=== PATIENT | male | born 1960 | race Caucasian/White ===

== ENCOUNTER 2017-01-20 18:11 | Inpatient (IN) ==
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
[2017-01-20] MEDS ORDERED: THIAMINE 200mg/2ml INJECTION IVP ONE (19:43)
[2017-01-20] MEDS ORDERED: NS 1,000 ML IV ONE (19:44)
[2017-01-20] MEDS ORDERED: IOHEXOL 300mg/ml 100ml INJECTION ONE (20:06)
[2017-01-20] MEDS ORDERED: NS 100 ML ONE (20:07)
[2017-01-20] MEDS ORDERED: SALINE FLUSH 10ml SYRINGE ONE (20:07)
[2017-01-20] MEDS ORDERED: SALINE FLUSH 10ml SYRINGE IVF PRN ×2 (20:32)
[2017-01-20] MEDS ORDERED: FentaNYL 100 MCG/2 ML INJECTION IVP ONE (22:08)
[2017-01-20] MEDS ORDERED: ONDANSETRON 4 MG/2 ML INJECTION IVP ONE (22:08)
[2017-01-20] MEDS ORDERED: ACETAMINOPHEN 325 MG TABLET PO PRN (23:23)
[2017-01-20] MEDS ORDERED: ONDANSETRON 4 MG/2 ML INJECTION IVP PRN (23:23)
[2017-01-20] MEDS ORDERED: MORPHINE SULFATE 2 MG SYRINGE IVP PRN (23:23)
[2017-01-20 23:50] VITALS: BMI 17.1
[2017-01-21] MEDS: NS 1,000 ML IV SCH ×3 (00:11→20:17)
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
--- NOTE | 2017-01-21 08:15 | CT Scan Report ---
Indication: AMS, lethargy PROCEDURE: CT head/brain wo con: Encounter: Initial Comparison: None Technique: Axial CT images through the head were performed without contrast. Iterative Reconstruction dose reducing technique was utilized. FINDINGS: The ventricles are of normal size, shape, and contour for the patient's age. There are scattered areas of low attenuation in the white matter which most likely represent changes from chronic microvascular ischemia. The brainstem, cerebellum, and cerebral hemispheres otherwise have a normal morphology and CT attenuation. There is no evidence of midline displacement. No hemorrhage, signs of acute territorial stroke, mass effect, mass lesions, or edema is evident. Chronic left maxillary sinusitis with bony wall thickening. Left ostiomeatal unit pattern of obstruction with mucosal thickening in the left frontal and anterior ethmoid air cells. The visualized portions of the skull base, midface, and calvarium demonstrate no abnormality. The paranasal sinuses are well aerated and free of significant disease. The tympanic and mastoid cavities appear normal. IMPRESSION: No acute intracranial abnormality or hemorrhage. There is a preliminary report by [facility]. .
[2017-01-21] MEDS: PANTOPRAZOLE 40 MG INJECTION IVP SCH (08:22)
[2017-01-21] MEDS: NICOTINE 21 MG PATCH TD SCH (08:23)
--- NOTE | 2017-01-21 08:30 | CT Scan Report ---
Indication: ABD PAIN PROCEDURE: CT abdomen pelvis w con: Encounter: Initial Comparison: None Technique: Axial CT images were performed through the abdomen and pelvis after the administration of intravenous contrast. Coronal and sagittal two-dimensional reformats. Automated Exposure Control and Iterative Reconstruction dose reducing techniques were utilized. Contrast: Omnipaque 300 75 mL Findings: The lung bases are clear. The liver is diffusely fatty infiltrated. Gallbladder is contracted. The spleen, pancreas and adrenal glands are within normal limits. Scattered arterial atherosclerotic plaque. The bladder is grossly normal. Small amount of free fluid. Diffusely dilated small bowel loops throughout the abdomen and pelvis measuring up to 5.5 cm in diameter with areas of wall thickening in the left upper quadrant. Fluid-filled colon. There is fecalization terminal ileum but no obvious transition point or decompressed small bowel appreciated. There is an anastomosis in the right upper quadrant small bowel. Bone windows show degenerative changes in the spine. Impression: Diffuse small bowel dilatation could represent an acute distal small bowel obstruction in the terminal ileal region versus chronic small bowel distention from slow motility or ileus. Surgical evaluation is recommended. There is a preliminary report by [facility]. .
[2017-01-21] MEDS: FOLIC ACID 5 MG/ML INJECTION IVP SCH (10:38)
[2017-01-21] MEDS: THIAMINE 200mg/2ml INJECTION IVP SCH (10:42)
[2017-01-21] MEDS: LIDOCAINE 1% 2ml INJ 10 MG, POTASSIUM CHLORIDE INJ 10 MEQ in NS 100 ML IV SCH ×4 (11:21→18:04)
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
[2017-01-21] MEDS: OXAZEPAM 30 MG CAPSULE PO SCH (21:33)
[2017-01-21] MEDS: NICOTINE PATCH REMOVAL TD SCH (21:35)
[2017-01-22] MEDS: NS 1,000 ML IV SCH ×2 (06:50→10:06)
--- NOTE | 2017-01-22 09:02 | XRay Report ---
Indication: F/U Ileus vs bowel obstruction. PROCEDURE: XR KUB w upright: Encounter: Initial Comparison: CT abdomen and pelvis dated January 20, 2017 Findings: The lung bases are clear. No free air. Dilated small and large bowel again seen. Scattered air-fluid levels seen in both small and large bowel in the central abdomen. There is some rectal gas present. Impression: Distention of small and large bowel could represent a generalized ileus. .
[2017-01-22] MEDS ORDERED: FLEET PHOSPHO - SODA ENEMA 133ml PR ONE (09:35)
[2017-01-22] MEDS: FOLIC ACID 5 MG/ML INJECTION IVP SCH (09:49)
[2017-01-22] MEDS: THIAMINE 200mg/2ml INJECTION IVP SCH (09:50)
[2017-01-22] MEDS: OXAZEPAM 30 MG CAPSULE PO SCH (09:50)
[2017-01-22] MEDS: PANTOPRAZOLE 40 MG INJECTION IVP SCH (09:50)
[2017-01-22] MEDS: NICOTINE 21 MG PATCH TD SCH (10:02)
[2017-01-22] MEDS: NICOTINE PATCH REMOVAL TD SCH (10:03)
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
[2017-01-22] MEDS ORDERED: DIATRIZOATE MEGLUMINE/SOD. (66%/10%) 120ml SOLN ONE (10:15)
--- NOTE | 2017-01-22 14:48 | Progress Note ---
DATE 01/22/2017 HISTORY The patient reports that he feels much better today. He states he has no pain in his abdomen at all today. The pain he had at admission has resolved. His abdomen also feels less distended. The patient is having no nausea or vomiting. The patient did have a soft bowel movement this morning. PHYSICAL EXAMINATION VITAL SIGNS: Temperature is 96.7 degrees oral. Pulse is 67. Respiratory rate is 18. Blood pressure is 133/80. Oxygen saturation is 97% on room air. ABDOMEN: The abdomen is soft and nontender today. The abdomen is nondistended today. The patient does have an old midline vertically oriented abdominal incision scar. The patient does have an old oblique right lower quadrant abdominal incision scar. LABORATORY DATA White blood cell count is 4,400 today with no bands. Hemoglobin is 11.9. Hematocrit is 35. Serum sodium is 131. Serum potassium is 3.5. IMAGING DATA The patient did have KUB and upright abdominal x-rays this morning. These x- rays show dilated small and large bowel loops. There are scattered air-fluid levels in both the large bowel and small bowel. There is some gas present in the rectum. The radiologist thought that the distention of the small bowel and large bowel is consistent with generalized ileus. IMPRESSION 1. Generalized ileus which is improving clinically with nonoperative treatment. 2. Hyponatremia which has improved since admission to the hospital. 3. Resolution of hypokalemia. 4. Chronic alcoholism. 5. Nicotine dependence. RECOMMENDATIONS 1. I did order a Fleet enema this morning to help with resolution of the ileus. 2. Continue nonoperative treatment for the generalized ileus. The patient could be started on something such as Reglan as a prokinetic agent to help with resolution of the ileus. [facility]
--- NOTE | 2017-01-22 15:12 | XRay Report ---
Indication: Ileus vs SBO PROCEDURE: XR small bowel follow through: Encounter: Initial Comparison: KUB from earlier today Findings: Water soluble contrast was administered orally followed by serial abdominal radiographs. Contrast traverses dilated small bowel reaching the rectum by 4 h after administration. Some of the planned exposures were not obtained in a timely manner leaving the exact transit time somewhat unclear between two and four hours. Impression: No evidence of significant ileus or bowel obstruction. .
[2017-01-22] MEDS: OXAZEPAM 15 MG CAPSULE PO SCH ×2 (15:29→21:47)
[2017-01-22] MEDS: NS with KCL 20 mEq 1,000 ML IV SCH (17:25)
[2017-01-23] MEDS: PANTOPRAZOLE 40 MG TABLET PO SCH (05:38)
[2017-01-23] MEDS: NS with KCL 20 mEq 1,000 ML IV SCH ×2 (05:39→18:56)
[2017-01-23] MEDS: FOLIC ACID 1 MG TABLET PO SCH (09:30)
[2017-01-23] MEDS: OXAZEPAM 15 MG CAPSULE PO SCH (09:31)
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
[2017-01-23] MEDS ORDERED: OXAZEPAM 10 MG CAPSULE PO PRN (10:43)
[2017-01-23] MEDS: NICOTINE PATCH REMOVAL TD SCH (12:36)
[2017-01-23] MEDS: NICOTINE 21 MG PATCH TD SCH (12:36)
--- NOTE | 2017-01-23 13:12 | Progress Note ---
DATE 01/23/2017 HPI The patient underwent a Gastrografin small bowel x-ray series yesterday. The contrast did go through the dilated small bowel and reach the rectum by 4 hours after administration. There was no evidence of any significant ileus or bowel obstruction. The patient was started on a clear liquid diet yesterday after the small bowel x-ray series was completed. The patient had eight loose bowel movements yesterday. The patient has no abdominal pain today. He is having no nausea or vomiting. He is tolerating the clear liquid diet well. PHYSICAL EXAMINATION VITAL SIGNS: Temperature is 96.1 degrees Fahrenheit. Pulse is 80. Respiratory rate is 17. Blood pressure is 130/92. Oxygen saturation is 97% on room air. ABDOMEN: The abdomen is soft and nontender. The abdomen is nondistended. LABORATORY DATA White blood cell count is 5,100 with no bands. Hemoglobin is 12.1. Hematocrit is 35.5. Serum sodium is 132. Serum potassium is 4.2.. IMAGING DATA The patient did undergo a small bowel follow through x-ray series with Gastrografin yesterday. This did show that the contrast did go through the dilated small bowel and reach the rectum by 4 hours after administration. There was no evidence of any significant ileus or bowel obstruction. IMPRESSION No evidence of significant ileus or a bowel obstruction on 01/22/2017 small bowel x-ray series. RECOMMENDATION 1. Ambulate patient in halls. 2. Advance diet as tolerated to regular diet. [facility]TDD
[2017-01-24] MEDS: PANTOPRAZOLE 40 MG TABLET PO SCH (05:48)
[2017-01-24 07:09] VITALS: BP 125/82; PULSE 76; RESP 16; TEMP 96.5; O2SAT 96
[2017-01-24] MEDS: NS with KCL 20 mEq 1,000 ML IV SCH (08:47)
[2017-01-24] MEDS: NICOTINE 21 MG PATCH TD SCH (08:49)
[2017-01-24] MEDS: FOLIC ACID 1 MG TABLET PO SCH (08:49)
[2017-01-24] MEDS: NICOTINE PATCH REMOVAL TD SCH (08:49)
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
== END 2017-01-24 12:35 | disposition home or self-care (01) | DRG 388 ==
LOC: ED 18:11 → SRG 22:50
PROVIDERS: ADMIT Internal Medicine; ATTEND Hospitalist

== ENCOUNTER 2017-09-24 06:56 | Observation (INO) ==
[2017-09-24 07:20] VITALS: BMI 29.5
[2017-09-24] MEDS: LR 1,000 ML IV SCH (07:42)
[2017-09-24] MEDS ORDERED: LIDOCAINE 1% (10mg/ml) 5ml PF SDV ONE (08:12)
[2017-09-24] MEDS ORDERED: ACETAMINOPHEN 325 MG TABLET PO PRN (10:02)
--- NOTE | 2017-09-24 11:14 | CT Scan Report ---
EXAM: CT biopsy lung RT DATE: 09/24/2017 9:00 AM ENCOUNTER: Subsequent HISTORY: R91.1 Solitary pulmonary nodule COMPARISON: Chest CT 07/22/2017 DESCRIPTION: After the risks and benefits were explained to the patient including but not limited to bleeding, infection, damage to adjacent structures, and pneumothorax, the patient gave verbal and written consent. A site of puncture was chosen over the posterior right hemithorax. The patient was prepped and draped in the usual sterile fashion. Local 1% Lidocaine anesthetic was used and a small skin trudy was made. Under direct CT guidance, a coaxial biopsy needle was advanced into the previously identified right upper lobe nodule and several core biopsy specimens were obtained. At least one specimen appeared grossly appeared adequate. The needle was removed during instillation of autologous blood patch. The patient tolerated the procedure well. There was mild complication by a tiny pneumothorax. Follow-up chest radiographs to monitor any potential pneumothorax be obtained prior to discharge. IMPRESSION: Successful CT guided biopsy of the previously identified right upper lobe pulmonary nodule complicated by a tiny pneumothorax which will be monitored with subsequent radiography . .
--- NOTE | 2017-09-24 11:15 | XRay Report ---
Indication: POST LUNG BIOPSY Procedure: XR chest 1V: Encounter: Subsequent Comparison: Preceding CT-guided biopsy imaging of the same day Technique: A single PA expiration view of the chest was obtained. Findings: Lungs and airways: Normal lung volumes. Re-demonstration of patient's known right upper lobe pulmonary nodule. Normal pulmonary vasculature. Pleura: No pleural effusion. Tiny right apical pneumothorax noted. Heart and mediastinum: Aortic atherosclerosis. The cardiomediastinal silhouette is otherwise within normal limits. Osseous structures and soft tissues: No acute osseous abnormality is seen. Impression: Tiny right apical pneumothorax status post biopsy of the patient's right upper lobe pulmonary nodule. Additional follow-up will be obtained in one hour (or sooner as clinically indicated) for monitoring. .
--- NOTE | 2017-09-24 11:17 | XRay Report ---
Indication: POST LUNG BIOPSY Procedure: XR chest 1V: Encounter: Subsequent Comparison: Prior chest radiograph of the same day Technique: A single PA expiratory radiograph of the chest was obtained. Findings: Lungs and airways: Normal lung volumes. Demonstration of patient's known right upper lobe nodule. Normal pulmonary vasculature. Pleura: No pleural effusion. Likely slightly increased right apical pneumothorax however still very small with pleural separation measuring approximately 1 cm. Heart and mediastinum: Aortic atherosclerosis. The cardiomediastinal silhouette is otherwise within normal limits. Osseous structures and soft tissues: No acute osseous abnormality is seen. Impression: Slightly increased but still very small right apical pneumothorax now with 1 cm of apical pleural separation. Patient remains clinically stable. 2 L supplemental oxygen will be applied via nasal cannula and follow-up will be obtained in one hour (or sooner as clinically indicated) for further monitoring. .
--- NOTE | 2017-09-24 12:32 | XRay Report ---
Indication: Post lung biopsy Procedure: XR chest 1V: Encounter: Subsequent Comparison: Prior chest radiographs of the same day Technique: A single PA expiration radiograph of the chest was obtained. Findings: Lungs and airways: Normal lung volumes. Unchanged known right upper lobe nodule. Normal pulmonary vasculature. Pleura: No pleural effusion. Further mildly increased right apical pneumothorax, now with 1.8 cm of pleural separation. Heart and mediastinum: Aortic atherosclerosis. The cardiomediastinal silhouette is otherwise within normal limits. Osseous structures and soft tissues: No acute osseous abnormality is seen. Impression: Further increased but still small right apical pneumothorax, now with 1.8 cm of pleural separation (previously 1 cm). Patient remains clinically stable without chest pain or shortness of breath. Findings were discussed with Dr. Boykin and it was decided to admit the patient to short term observation for continued chest radiography follow up to determine whether the pneumothorax might stabilize versus increase to a size calling for chest tube placement, which at the current time is indeterminate. Findings and plan were discussed with the patient. .
--- NOTE | 2017-09-24 13:11 | XRay Report ---
Indication: Post Lung Biopsy PROCEDURE: XR chest 1V: Encounter: Initial Comparison: Multiple prior chest x-rays from earlier today Findings: The small right apicolateral pneumothorax is again slightly larger now showing 2.3 cm of pleural separation compared to 1.8 cm previously. Right upper lobe lung nodule again seen. No left-sided pneumothorax or mediastinal shift. No pleural effusion. Heart size and pulmonary vascularity are stable. Impression: Continued slight increase in size of the right-sided pneumothorax. .
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
--- NOTE | 2017-09-24 14:43 | XRay Report ---
Indication: POST LUNG BIOPSY PROCEDURE: XR chest 1V: Encounter: Initial Comparison: September 24, 2017 at 1258 Findings: The right apicolateral pneumothorax appears stable in size. No acute changes in appearance of the chest. Left lung remains clear. Cardiomediastinal contours and pulmonary vascularity are stable. Impression: Stable size of the small right pneumothorax. .
--- NOTE | 2017-09-24 16:46 | XRay Report ---
Indication: POST LUNG BIOPSY PROCEDURE: XR chest 1V: Encounter: Initial Comparison: September 24, 2017 at 1424 and September 24, 2017 at 1258 Findings: The small right apical lateral pneumothorax appears to be stabilizing with pleural separation increasing by only 1 to 2 mm over the past three hours. Again no midline mediastinal shift. Left lung is stable and grossly clear. Heart size and pulmonary vascularity are within normal limits. Impression: Small right apicolateral pneumothorax appears to be stabilizing. The patient will be monitored overnight with a follow-up radiograph tomorrow morning. Findings were called to Dr. Boykin at 1635 on September 24, 2017. .
--- NOTE | 2017-09-25 07:51 | XRay Report ---
Indication: F/U Pneumothorax PROCEDURE: XR chest 1V: Encounter: Initial Comparison: September 24, 2017 at 1617 Findings: Small right-sided pneumothorax appears slightly smaller on current study, around 10%. Left lung is clear. No pleural effusion. Heart size and mediastinal contours are stable. No midline shift. Impression: Slightly improved small right-sided pneumothorax. .
[2017-09-25 08:27] VITALS: O2SAT 100
[2017-09-25] MEDS: LR 1,000 ML IV SCH (08:45)
--- NOTE | 2017-09-25 10:48 | Progress Note ---
- Date 09/25/17 Subjective: F/U: Pneumothorax Doing okay this morning. Some incisional discomfort. Feels breathing ok. Not having cough or congestion. No nausea or ab pain. Feels tired in general. Objective Vital signs: Temperature 97.6 F 09/25/17 08:24 Pulse Rate 80 09/25/17 08:24 Respiratory Rate 12 09/25/17 08:24 Blood Pressure 121/76 09/25/17 08:24 Pulse Oximetry 100 09/25/17 08:24 Height/Weight/BMI: Height 1.73 m Weight 89.7 kg Body Mass Index 29.5 - Constitutional Present: well nourished, well developed, average body habitus, cooperative - Routine HEENT Exam Head: Present: normocephalic, atraumatic Eye: Present: EOMI, PERRL ENT: Present: mucous membranes moist - Routine Respiratory Exam Present: CTA bilaterally. Absent: respiratory distress, wheezes, crackles - Routine Cardiovascular Exam Present: RRR, no murmur - Routine Abdominal Exam Present: soft, normoactive bowel sounds, non distended, non tender - Routine Extremities Exam Present: no edema. Absent: cyanosis, clubbing - Routine Musculoskeletal Exam Musculoskeletal: Present: no clubbing or cyanosis - Routine Skin Exam Present: dry, warm - Routine Neurological Exam Present: alert, oriented X3, CN II-XII intact, moving all extremities, vision grossly intact, hearing grossly intact, normal speech. 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 Will have nursing remove O2 and ambulate to monitor symptoms. Discussed case with Dr Davis - most likely will resolve on it's own. Dr Davis would be able to follow up with patient next Tu (09/30/17) in clinic and repeat CXR at that time. Case discussed with CM and CM. DVT Prophylaxis: SCD's Resuscitation Status: Full Code - Physician Narrative Physician: Tho Boykin MD Narrative: Date: 09/25/17 Time: 1045 Hospital Course Summary Disclaimer: The visit summary below is not to be considered part of the above Progress Note. Hospital Course: 09/24/17 Admit, observation status, under the hospitalist service. Place on oxygen; monitor respiratory status closely. Serial CXR have shown small progression of pneumothorax from 1 cm to 2.3 cm. Consult surgery/pulmonology if pneumothorax enlarges enough to require thoracostomy. Diet: regular. SCDs for VTE PPX. PCP: Dr. Aguiar. Advanced directives: Anthony's ex- and their son are his DPOAs; Full code 09/25/17 Repeat CXR showing stability - around 10% slightly improved small right-sided pneumothorax. Will have nursing remove O2 and ambulate to monitor symptoms. Discussed case with Dr Davis - most likely will resolve on it's own. Dr Davis would be able to follow up with patient next (09/30/17) in clinic and repeat CXR at that time.
[2017-09-25 11:42] VITALS: BP 129/87; PULSE 77; RESP 16; TEMP 97.8
--- NOTE | 2017-09-25 14:37 | XRay Report ---
Indication: F/U pneumothorax PROCEDURE: XR chest 1V: Encounter: Initial Comparison: September 25, 2017 at 0601 Findings: The right apicolateral pneumothorax is stable allowing for slight differences in patient positioning and rotation. 2.8 cm of maximal pleural separation on the expiration view. Left lung remains clear. Heart size and mediastinal contours are stable. Pulmonary vascularity appears normal. Impression: Stable appearance of the small right-sided pneumothorax. .
--- NOTE | 2017-09-25 14:56 | Extended Care Facility Orders ---
Admission Orders Admit to:: [facility] Allergies/Adverse Reactions: Allergies codeine Allergy (Unknown, Verified 09/10/17 09:29) Admitting Diagnosis: Pneumothorax Admitting Physician: Tho Boykin MD Attending Physician: Dr Aguiar Code Status: Full Code Anticiapted Length of Stay: greater than 30 days Rehab Potential: fair Rehab Prognosis: fair Diet: Regular Diet May use Facility Protocol or Standing Orders: Yes May have flu vaccine: Yes [facility] Certification: I certify that SNF services are required to be given on an Inpatient basis because of the patients need for longterm care on a continuing basis for the condition(s) for which he/she received inpatient hospital services prior to his/her transfer to the SNF. SNF inpatient care is necessary for the following reasons Indication for [facility]: Not Applicable - Additional Information In Event of Arrest: Start CPR,call 911,send patient to the ER Resident is Aware of Diagnosis: Yes Referrals: Winifred Aguiar MD [Family Provider] - 1 Week (F/U Lung bx - poorly diffentiated squamous cell carcinoma ) Calvin Davis MD [Physician] - (Needs f/u apt on 09/30/17 for clinic evaluation and CXR for follow up pneumothorax. 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 )
--- NOTE | 2017-09-25 15:13 | Discharge Summary ---
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 - Laboratory Labs: Laboratory Tests 09/24/17 07:35 INR 1.05 09/24/17 07:35 - Radiology Radiology: Date of Exam: 09/24/17 Procedure: XR chest 1V Findings: Lungs and airways: Normal lung volumes. Re-demonstration of patient's known right upper lobe pulmonary nodule. Normal pulmonary vasculature. Pleura: No pleural effusion. Tiny right apical pneumothorax noted. Heart and mediastinum: Aortic atherosclerosis. The cardiomediastinal silhouette is otherwise within normal limits. Osseous structures and soft tissues: No acute osseous abnormality is seen. Impression: Tiny right apical pneumothorax status post biopsy of the patient's right upper lobe pulmonary nodule. Additional follow-up will be obtained in one hour (or sooner as clinically indicated) for monitoring. Date of Exam: 09/24/17 Procedure: XR chest 1V Impression: Slightly increased but still very small right apical pneumothorax now with 1 cm of apical pleural separation. Patient remains clinically stable. 2 Lsupplemental oxygen will be applied via nasal cannula and follow-up will beobtained in one hour (or sooner as clinically indicated) for further monitoring. Date of Exam: 09/24/17 Procedure: XR chest 1V Impression: Further increased but still small right apical pneumothorax, now with 1.8 cm of pleural separation (previously 1 cm). Patient remains clinically stable without chest pain or shortness of breath. Findings were discussed with Dr. Boykin and it was decided to admit the patient to short term observation for continued chest radiography follow up to determine whether the pneumothorax might stabilize versus increase to a size calling for chest tube placement, which at the current time is indeterminate. Findings and plan were discussed with the patient. Date of Exam: 09/24/17 PROCEDURE: XR chest 1V Impression: Continued slight increase in size of the right-sided pneumothorax. Date of Exam: 09/24/17 PROCEDURE: XR chest 1V Impression: Small right apicolateral pneumothorax appears to be stabilizing. The patient will be monitored overnight with a follow-up radiograph tomorrow morning. Date of Exam: 09/25/17 PROCEDURE: XR chest 1V Findings: Small right-sided pneumothorax appears slightly smaller on current study, around 10%. Left lung is clear. No pleural effusion. Heart size and mediastinal contours are stable. No midline shift. Impression: Slightly improved small right-sided pneumothorax. Date of Exam: 09/25/17 PROCEDURE: XR chest 1V Findings: The right apicolateral pneumothorax is stable allowing for slight differences in patient positioning and rotation. 2.8 cm of maximal pleural separation on the expiration view. Left lung remains clear. Impression: Stable appearance of the small right-sided pneumothorax. - Pathology Right upper lobe of lung biopsy Poorly-differentiated squamous cell carcinoma History of Present Illness HPI: Jer Graham is a 57 y/o male who presented to [facility] [place] this morning for a planned CT-guided biopsy of a right lung nodule. Unfortunately, following the biopsy he developed a small apical pneumothorax, which has been increasing in size on serial CXR. While he's asymptomatic, he's been placed on oxygen. The pneumothorax does not require chest tube at this time, but since it is showing enlargement, Dr. Boykin was asked to admit the patient to observation status. Anthony was seen in his room along with his ex- who is one of his DPOAs (the other is his son). Ever since he went "cold turkey" from drinking alcohol in November, (he used to drink over a case of beer daily) his memory hasn't been right. He developed Wernicke-Korsakoff syndrome and has very little recollection of the last 20 years and extremely poor short term memory. Therefore, he was not a good historian and his ex- helped significantly with his medical history. He reports that he used to smoke heavily, but now only smokes when he can get his hands on them -- he's a resident at [facility]. He has had a nonproductive cough and sinus congestion recently. He denies feeling SOA. No fever/chills. He denies chest pain or palpitations, but states that he's had some bilateral leg swelling fairly recently. No body aches or headaches. He denies dizziness or weakness. He denies abdominal pain, n/v/d or constipation. He denies urinary problems. He's gained about 80 lbs since he quit drinking alcohol (he used to weigh 114 lbs, currently 193). He denies falls, wounds, or rashes. He repeated questions occasionally and smiled/laughed often, at times inappropriately. His ex- reports that he's at his cognitive baseline. For complete details of the H&P refer to that document. Objective Vital signs: Temperature 97.8 F 09/25/17 11:41 Pulse Rate 77 09/25/17 11:41 Respiratory Rate 16 09/25/17 11:41 Blood Pressure 129/87 09/25/17 11:41 Pulse Oximetry 100 09/25/17 11:41 Height/Weight/BMI: Height 1.73 m Weight 89.7 kg Body Mass Index 29.5 Hospital Course This is a general summary of the patient's hospital course. For more details refer to the complete medical record. Hospital course: 09/24/17 Admit, observation status, under the hospitalist service. Place on oxygen; monitor respiratory status closely. Serial CXR have shown small progression of pneumothorax from 1 cm to 2.3 cm. Consult surgery/pulmonology if pneumothorax enlarges enough to require thoracostomy. Diet: regular. SCDs for VTE PPX. PCP: Dr. Aguiar. Advanced directives: Anthony's ex- and their son are his DPOAs; Full code 09/25/17 Repeat CXR showing stability - around 10% slightly improved small right-sided pneumothorax. Will have nursing remove O2 and ambulate to monitor symptoms. Discussed case with Dr Davis - most likely will resolve on it's own. Dr Davis would be able to follow up with patient next (09/30/17) in clinic and repeat CXR at that time. Repeated CXR this afternoon - still showing stability. Breathing stable. Ambulating well. Will discharge to home. See orders for details. Time spent with patient: greater than 35 minutes Resuscitation Status: Full Code Discharge Plan - Discharge Disposition Discharge Date: 09/25/17 Disposition: 04 To [facility] Home/Facility *Condition: Stable Reason For Visit (Visit label in EMR): Pneumothorax - Discharge Medications *Discharge Medications: New RX: Acetaminophen [Tylenol] 650 mg PO Q6H PRN tab PRN Reason: Pain Continue Vitamin D3 (cholecalciferol) 1,000 unit capsule 1,000 unit PO DAILY cap No Action cyanocobalamin (vit B-12) 1,000 mcg tablet 1,000 mcg PO DAILY - Discharge Packet/Instructions *Diet: MAY ADVANCE DIET TOLERATED TO PRE-ADMIT DIET *Activity: DO NOT EXERCISE OR DO HEAVY LIFTING FOR 1 WEEK *Pain Management/Treatment: ACETAMINOPHEN 650MG PO Q6H PRN PAIN, CALL IF NOT EFFECTIVE *Wound Care: N/A Additional Instructions: MAY RETURN TO WORK 48 HOURS AFTER PROCEDURE AND MAY START DRIVING 24 HOURS AFTER PROCEDURE, MAY SHOWER/BATHE STARTING 24 HOURS AFTER PROCEDURE *Expected Signs/Symptoms: N/A *Notify Physician if: ANY PATIENT CONCERNS *During Business Hours Contact: *After Business Hours Contact: *Pending Lab/Results: Follow up w/Provider - Referrals/Follow Up *Referrals/Follow Up: Winifred Aguiar MD [Family Provider] - 1 Week (F/U Lung bx - poorly diffentiated squamous cell carcinoma ) Calvin Davis MD [Physician] - (Needs f/u apt on 09/30/17 for clinic evaluation and CXR for follow up pneumothorax. 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 ) - Patient Handouts Patient Handouts: [facility] CT Guided Biopsy, Traumatic Pneumothorax (DC), Needle Biopsy of the Lung (DC) - Dismissal Complete Discharge Instructions are:: Complete Physician Narrative - Narrative Physician: Tho Boykin MD Attestation Narrative: Date: 09/25/17 Time: 1510 Have independently interviewed and examined patient prior to discharge. See my progress note from today for details. Medically stable for discharge to home.
== END 2017-09-25 15:53 ==
LOC: SRG 06:56 → IMA.CT 06:56 → SRG 06:59 → EDSTATUS 09:00
PROVIDERS: ADMIT Hospitalist; ATTEND Hospitalist